=== PATIENT | male | born 1955 | race Caucasian/White ===

== ENCOUNTER → 2022-05-12 | Day surgery (SDC) | payer MEDICARE, MEDICAID ==
[~2022-05-12] VITALS: Ht 160 cm; Wt 65.9 kg
[~2022-05-12] MED LIST: AMLO-257 PO; ASPI-1444 PO; ASPI-1450 PO; ASPIRIN 81 MG CHEWABLE TABLET PO ONE; ATOR40TA28 PO; BUME1TAB34 PO; CARV6 PO; CHOL500013 PO; CLOP75TA60 PO; CLOPIDOGREL BISULFATE 300 MG TABLET ONE; CLOPIDOGREL BISULFATE 300 MG TABLET PO ONE; DIAZEPAM 5 MG TABLET ONE; DIAZEPAM 5 MG TABLET PO ONE; DOCU-385 PO; DiphenhydrAMINE HCL 50 MG CAPSULE ONE; DiphenhydrAMINE HCL 50 MG CAPSULE PO ONE; FINA-27 PO; FOLI0.8T22 PO; FOLI0.8T43 PO; FentaNYL CITRATE PF 100 MCG/2 ML VIAL IVP ONE; FentaNYL CITRATE PF 100 MCG/2 ML VIAL ONE; GABA-529 PO; GLIP5TAB12 PO; HEPARIN SODIUM 1000 UNITS/NS 1,000 ML IARTER ONE; HEPARIN SODIUM 1000 UNITS/NS 1,000 ML ONE; HEPARIN SODIUM,PORCINE 5,000 UNITS/ML VIAL IVP ONE; ICOS1CAP PO; IOHEXOL 300 MG/ML 100 ML VIAL ONE; IOHEXOL 300 MG/ML 150 ML VIAL IARTER ONE; IOHEXOL 300 MG/ML 150 ML VIAL ONE; IOHEXOL 300 MG/ML 50 ML VIAL ONE; LEVO112T4 PO; LEVO112T7 PO; LIDOCAINE 1% 30 ML/SOD BICARB 8.4% 4 ML SQ ONE; LIDOCAINE/PF 1% 30 ML VIAL ONE; LINA290C PO; LINA5TAB PO; METO2.5T2 PO; MIDAZOLAM HCL 2 MG/2 ML VIAL IVP ONE; MIDAZOLAM HCL 2 MG/2 ML VIAL ONE; MUPI1OIN5 TP; NIFE30TA5 PO; OMEP20 PO; SEVE0.8P6 PO; SEVE800T7 PO; SODIUM BICARBONATE 50 MEQ/50 ML VIAL ONE; SODIUM CHLORIDE 0.9% 1,000 ML IV SCH; SODIUM CHLORIDE 0.9% 1,000 ML ONE; SUCR500T PO; TAMS-13 PO
[2022-05-12 10:47] VITALS: BP 145/63
[2022-05-12 11:36] LABS: GLUCOMETER DEV NAME(LOC) SDS.; GLUCOSE,POINT OF CARE 113 MG/DL (70-110)
[2022-05-12 11:42] VITALS: BP 158/53
[2022-05-12 11:47] VITALS: BP 153/56
== END | disposition still patient (30) ==
LOC: CATHLAB 08:02
PROVIDERS: ATTEND Internal Medicine Interventional Cardiology
DX: R94.39 Abnormal result of other cardiovascular function study (principal); I25.10 Atherosclerotic heart disease of native coronary artery without angina pectoris; I12.0 Hypertensive chronic kidney disease with stage 5 chronic kidney disease or end stage renal disease; N18.6 End stage renal disease; N18.9 Chronic kidney disease, unspecified; Z98.890 Other specified postprocedural states; Z79.899 Other long term (current) drug therapy
CPT/HCPCS: 82962; 92978; 92979; 93005; 93458; 99152; 99153; C1753; C1757; C1760; C1874; C1887; C9600; J1644; J2250; J3010; J3490 ×2; J7030; Q9967 ×2; 75960; 92920; 92928